=== PATIENT | female | born 1995 | race Two or more races ===

== ENCOUNTER 2024-12-22 14:29 | Inpatient (IN) | payer SELFPAY ==
[~2024-12-22] VITALS: Ht 175.3 cm; Wt 159.0 kg
--- NOTE | 2024-12-22 15:23 | ED.PDOC ---
Epistaxis- HPI HPI Comments 29 y/o F, with no prior medical history presents to the ED for the for CC of nose bleed. 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 Patient denies trauma, fall, injury, or recent use of blood thinners. No other symptoms or modifying behavior present at this time. Chief Complaint: Nose Bleed Time Seen by MD: 15:25 Primary Care Provider: NONE Reviewed Notes: Nurses Notes, Medications, Allergies Allergies: Coded Allergies: NO KNOWN ALLERGIES (Unverified , 12/22/24) Information Source: Patient Mode of Arrival: Ambulatory Severity: Bleeding Uncontrolled Timing: Minutes Duration: Since onset Prehospital treatment: None Location: Right naris Mechanism: Spontaneous onset Circumstances: Unknown Use of: None History of: None Last Tetanus: Unknown Nose: Normal Bleeding Status: Active bleeding Bleeding Amount: Moderate Source: Right Associated signs and symptoms: None Past Medical History PAST MEDICAL HISTORY: Denies Surgical History: Denies all surgeries 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 Hx Family History Family History: Unknown Social History Smoker: Non-Smoker Alcohol: Denies ETOH Use Drugs: Denies Drug Use Lives In: Home Constitutional: denies: chills, diaphoresis, fatigue, fever, malaise, sweats, weakness, others EENTM: reports: nose bleeding; denies: blurred vision, double vision, ear bleeding, ear discharge, ear drainage, ear pain, ear ringing, eye pain, eye redness, hearing loss, mouth pain, mouth swelling, nasal discharge, nose congestion, nose pain, photophobia, tearing, throat pain, throat swelling, voice changes, others Respiratory: denies: cough, hemoptysis, orthopnea, SOB at rest, shortness of breath, SOB with excertion, stridor, wheezing, others Cardiovascular: denies: chest pain, dizzy spells, diaphoresis, Dyspnea on exertion, edema, irregular heart beat, left arm pain, lightheadedness, palpitations, PND, syncope, others Gastrointestinal: denies: abdomen distended, abdominal pain, blood streaked bowels, constipated, diarrhea, dysphagia, difficulty swallowing, hematemesis, melena, nausea, poor appetite, poor fluid intake, rectal bleeding, rectal pain, vomiting, others Genitourinary: denies: abnormal vagina bleeding, burning, dyspareunia, dysuria, flank pain, frequency, hematuria, incontinence, pain, , vagina discharge, urgency, others Neurological: denies: dizziness, fainting, headache, left sided numbness, left sided weakness, numbness, paresthesia, pre-existing deficit, right sided numbness, right sided weakness, seizure, speech problems, tingling, tremors, weakness, others Musculoskeletal: denies: back pain, gout, joint pain, joint swelling, muscle pain, muscle stiffness, neck pain, others Integumetry: denies: bruises, change in color, change in hair/nails, dryness, laceration, lesions, lumps, rash, wounds, others Allergic/Immunocompromised: denies: Difficulty Healing, Frequent Infections, Hives, Itching, others Hematologic/Lymphatic: denies: anemia, blood clots, easy bleeding, easy bruising, swollen glands, others Endocrine: denies: excessive hunger, excessive sweating, excessive thirst, excessive urination, flushing, intolerance to cold, intolerance to heat, unexplained weight gain, unexplained weight loss, others Psychiatric: denies: anxiety, bipolar disorder, depression, hopeless, panic disorder, schizophrenia, sleepless, suicidal, others All Other Systems: Reviewed and Negative Physical Exam General Appearance: No Apparent Distress, Normal HEENT: Normal ENT Inspection, Pharynx Normal, Other (UNCONTROLLED EPISTAXIS TO THE RIGHT NARIS) Neck: Full Range of Motion, Non-Tender, Normal, Normal Inspection Respiratory: Chest Non-Tender, Lungs Clear, No Accessory Muscle Use, No Respiratory Distress, Normal Breath Sounds Cardiovascular: No Edema, No Murmur, No Gallop, Normal Peripheral Pulses, Regular Rate/Rhythm Breast Exam: Deferred Gastrointestinal: No Organomegaly, Non Tender, No Pulsatile Mass, Normal Bowel Sounds, Soft Genitalia: Deferred Pelvic: Deferred Rectal: Deferred Extremities: No calf tenderness, Normal capillary refill, Normal inspection, Normal range of motion, Non-tender, No pedal edema Musculoskeletal : Apperance: Normal Neurologic: Alert, marketing campaign analyst II-XII nml as Tested, No Motor Deficits, Normal Affect, Normal Mood, No Sensory Deficits Cerebellar Function: Normal Reflexes: Normal Skin: Dry, Normal Color, Warm Lymphatic: No Adenopathy Was a procedure done? Was a procedure done?: Yes Sedation Sedation?: No Informed consent obtained: Yes Nasal Cautery and Pack Indicaton: Anterior epitaxis Location of packing: Right Packing: Other (TXA soaked gauze) Informed consent obtained: Yes Risks/benefits/alt described: Yes Differential Diagnosis (NSB) Differential Diagnosis: Anterior Nasal Bleed, Posterior Nasal Bleed, Hypertension, Coagulopathy X-Ray, Labs, Meds, VS Vital Signs Date Time Temp Pulse Resp B/P (MAP) Pulse Ox O2 Delivery O2 Flow Rate FiO2 12/22/24 17:02 236/116 12/22/24 14:45 97.6 122 16 177/109 (131) 96 97.6 Lab Test 12/22/24 16:04 Range/Units White Blood Count 10.8 4.4-10.8 10^3/uL Red Blood Count 4.27 4.0-5.20 10^6/uL Hemoglobin 11.5 L 12.2-16.2 g/dL Hematocrit 35.0 L 36.0-46.0 % Mean Corpuscular Volume 81.9 80.0-100.0 fL Mean Corpuscular Hemoglobin 26.9 L 28.0-32.0 pg Mean Corpuscular Hemoglobin Concent 32.9 32.0-36.0 g/dL Red Cell Distribution Width 15.6 H 11.8-14.3 % Platelet Count 290 140-450 10^3/uL Mean Platelet Volume 7.5 6.9-10.8 fL Neutrophils (%) (Auto) 77.2 37.0-80.0 % Lymphocytes (%) (Auto) 14.7 10.0-50.0 % Monocytes (%) (Auto) 6.1 0.0-12.0 % Eosinophils (%) (Auto) 1.5 0.0-7.0 % Basophils (%) (Auto) 0.5 0.0-2.0 % Neutrophils # (Auto) 8.4 1.6-8.6 10 ^3/uL Lymphocytes # (Auto) 1.6 0.4-5.4 10 ^3/uL Monocytes # (Auto) 0.7 0-1.3 10 ^3/uL Eosinophils # (Auto) 0.2 0-0.8 10 ^3/uL Basophils # (Auto) 0 0-0.2 10 ^3/uL Nucleated Red Blood Cells 0.0 % Sodium Level 140 136-145 mmol/L Potassium Level 3.7 3.5-5.1 mmol/L Chloride Level 105 98-107 mmol/L Carbon Dioxide Level 25 20-31 mmol/L Anion Gap 10 5-15 Blood Urea Nitrogen 12 9-23 mg/dL Creatinine 0.89 0.550-1.02 mg/dL Glomerular Filtration Rate Calc 90 >90 mL/min BUN/Creatinine Ratio 13.5 10.0-20.0 Serum Glucose 115 H 74-106 mg/dL Calcium Level 9.2 8.7-10.4 mg/dL Current Medications Medications (Trade) Dose Ordered Sig/Stalin Route Start Time Stop Time Status Last Admin Oxymetazoline HCl (Afrin) 1 spr ONCE ONCE EACHNOSTRI 12/22/24 15:45 12/22/24 15:46 DC 12/22/24 15:42 Hydralazine HCl (Apresoline Injection) 5 mg ONCE ONCE IV 12/22/24 16:45 12/22/24 16:46 DC 12/22/24 17:02 29-year-old female presents here with evidence of epistaxis. On my evaluation she has significant epistaxis. Patient given Afrin bilaterally with continued bleeding. Blood pressure was noted to be significantly in the 236 systolic over 111. Patient was given hydralazine IV. Suspect high blood pressure is likely the cause of her significant epistaxis. Pressure was held on the nose by myself and the patient. Although it did improve, she continued to have bleeding. At this time I was unable to visualize the exact area therefore unable to perform silver nitrate cauterization. I have placed a TXA soaked gauze into her right nare. After removal, bleeding has stopped. At this time however blood pressure continues to remain high. She states she has a history of blood pressure, previously took some medications but does not know the name. She does not know what her blood pressure normally runs. At this time she continues to remain high. Hospitalist team has been contacted for admission. Time of 1ST Reevaluation: 15:55 Reevaluation 1ST: Unchanged Time of 2ND Reevaluation: 17:36 Reevaluation 2ND: Improved Patient Education/Counseling: Diagnosis, Treatment Family Education/Counseling: No Family Present Departure 1 Departure Time of Disposition: 16:48 Impression: Primary Impression: Epistaxis Additional Impression: Hypertensive urgency Disposition: ADMITTED INPATIENT Condition: Fair Critical Care Note Critical Care Time?: Yes (35 min-critical care time only) Critical care comment: Time spent performing multiple re-evaluations of the patient. Speaking to nursing staff. Speaking to family. managing her BP. Stability Stability form required: No Heart Score Heart Score: Heart Score Response (Comments) Value History N/A 0 EKG N/A 0 Age N/A 0 Risk Factors N/A 0 Troponin N/A 0 Total 0 I personally scribed for BLAYNE WANG MD ([email or web address]) on 12/22/24 at 15:23. Electronically submitted by Martina Hinton ([facility]). I personally scribed for BLAYNE WANG MD ([email or web address]) on 12/22/24 at 15:48. Electronically submitted by Martina Hinton ([facility]). I personally scribed for BLAYNE WANG MD ([email or web address]) on 12/22/24 at 17:25. Electronically submitted by Martina Hinton ([facility]). BLAYNE WANG MD Dec 22, 2024 15:23
[2024-12-22] MEDS: OXYMETAZOLINE HCL 0.05 % NASAL SPRAY 15ML EACHNOSTRI ONE (15:42)
[2024-12-22 16:15] LABS: Hemoglobin 11.5 g/dL (12.2-16.2); Mean Corpuscular Hemoglobin 26.9 pg (28.0-32.0); Nucleated Red Blood Cells % 0.0 %
[2024-12-22] MEDS: TRANEXAMIC ACID 1,000 MG in SODIUM CHL 0.9% 100 ML IV ONE (16:15)
[2024-12-22 16:16] LABS: Hematocrit 35.0 % (36.0-46.0); Mean Corpuscular Volume 81.9 fL (80.0-100.0)
[2024-12-22 16:19] LABS: Chloride 105 mmol/L (98-107); Potassium 3.7 mmol/L (3.5-5.1); Sodium 140 mmol/L (136-145)
[2024-12-22 16:20] LABS: Anion Gap 10 (5-15); Calcium 9.2 mg/dL (8.7-10.4); Carbon Dioxide 25 mmol/L (20-31)
[2024-12-22 16:25] LABS: BUN/Creatinine Ratio 13.5 (10.0-20.0); Blood Urea Nitrogen 12 mg/dL (9-23)
[2024-12-22 16:27] LABS: Glucose 115 mg/dL (74-106)
[2024-12-22 16:45] VITALS: PULSE 97; RESP 19; O2SAT 95
[2024-12-22] MEDS: hydrALAZINE HCL 20 MG/ML VL IV ONE ×2 (17:02→20:45)
[2024-12-22 19:50] VITALS: PULSE 93; RESP 17; O2SAT 96
[2024-12-22] MEDS ORDERED: ONDANSETRON HCL 4 MG/2 ML VIAL IV PRN (20:00)
[2024-12-22] MEDS ORDERED: ACETAMINOPHEN 325 MG TAB PO PRN (20:00)
[2024-12-22 20:17] LABS: INR 0.99 (0.9-1.15); Partial Thromboplastin Time 27.6 SEC (24.5-34.5); Prothrombin Time 10.5 sec (9.3-11.8)
[2024-12-22] MEDS: LISINOPRIL 5 MG TAB PO ONE (20:25)
[2024-12-22] MEDS: LABETALOL HCL 20 MG/4 ML VL IV ONE (21:28)
[2024-12-22] MEDS: OXYMETAZOLINE HCL 0.05 % NASAL SPRAY 15ML EACHNOSTRI SCH (22:10)
[2024-12-23] VITALS (10 sets, daily range): BP systolic 131–177; BP diastolic 83–116; PULSE 70–96; RESP 17–18; TEMP 96.9–97.9; O2SAT 94–99
[2024-12-23] MEDS: METOPROLOL TARTRATE 25 MG TAB PO ONE
--- NOTE | 2024-12-23 04:46 | DVHHP2 ---
History of Present Illness Reason for Visit: Nosebleed History of Present Illness 29-year-old female presents for evaluation of nosebleed. Patient reports having a nosebleed starting today. On arrival to the emergency department her blood pressure was noted to be in the 180s. Patient does not use blood thinners. She states not taking any blood pressure medication for the past two years. Denies headache or blurred vision. No chest pain. No other acute complaints. Past Medical History Denies Past Surgical History Denies Family History Noncontributory Smoke: No ALCOHOL: none Drugs: None Lives: with Family Review of Systems Review of Systems Review of systems are currently negative otherwise addressed in HPI. Allergies: Coded Allergies: NO KNOWN ALLERGIES (Unverified , 12/22/24) Medications Current Medications Medications Dose Ordered Sig/Stalin Route Start Time Stop Time Status Last Admin Dose Admin Lisinopril 10 mg DAILY PO 12/23/24 10:00 Oxymetazoline HCl 2 spr BID EACHNOSTRI 12/22/24 22:00 12/22/24 22:10 2 SPR Ondansetron HCl 4 mg Q4HP PRN IV 12/22/24 20:00 Acetaminophen 650 mg Q6HP PRN PO 12/22/24 20:00 Clonidine HCl 0.1 mg Q6HP PRN PO 12/23/24 04:00 Exam Vital Signs Vital Signs Date Time Temp Pulse Resp B/P (MAP) Pulse Ox O2 Delivery O2 Flow Rate FiO2 12/23/24 03:34 80 22 156/95 (115) 95 12/23/24 01:00 98.0 98.0 12/22/24 19:50 Room Air* 0 21 Exam Gen: 29-year-old female in no apparent distress, morbidly obese Skin: Warm, dry, normal color and texture, no rash. HEENT: Normocephalic atraumatic, mucous membranes moist and pink. Neck: Cervical and supraclavicular nodes normal without enlargement, trachea is midline, thyroid gland is normal without masses. Pulmonary: Clear to auscultation and percussion bilaterally. Cardiac: Regular rate and rhythm. No murmur Abdomen: Soft, nontender, nondistended, bowel sounds present all 4 quadrants, no guarding, no rigidity, no organomegaly. Extremities: No cyanosis, clubbing, no edema Neuro: Cranial nerves II through XII grossly intact, normal affect and speech, no focal motor deficits. Labs/Xrays Labs Test 12/22/24 16:04 Range/Units White Blood Count 10.8 4.4-10.8 10^3/uL Red Blood Count 4.27 4.0-5.20 10^6/uL Hemoglobin 11.5 L 12.2-16.2 g/dL Hematocrit 35.0 L 36.0-46.0 % Mean Corpuscular Volume 81.9 80.0-100.0 fL Mean Corpuscular Hemoglobin 26.9 L 28.0-32.0 pg Mean Corpuscular Hemoglobin Concent 32.9 32.0-36.0 g/dL Red Cell Distribution Width 15.6 H 11.8-14.3 % Platelet Count 290 140-450 10^3/uL Mean Platelet Volume 7.5 6.9-10.8 fL Neutrophils (%) (Auto) 77.2 37.0-80.0 % Lymphocytes (%) (Auto) 14.7 10.0-50.0 % Monocytes (%) (Auto) 6.1 0.0-12.0 % Eosinophils (%) (Auto) 1.5 0.0-7.0 % Basophils (%) (Auto) 0.5 0.0-2.0 % Neutrophils # (Auto) 8.4 1.6-8.6 10 ^3/uL Lymphocytes # (Auto) 1.6 0.4-5.4 10 ^3/uL Monocytes # (Auto) 0.7 0-1.3 10 ^3/uL Eosinophils # (Auto) 0.2 0-0.8 10 ^3/uL Basophils # (Auto) 0 0-0.2 10 ^3/uL Nucleated Red Blood Cells 0.0 % Prothrombin Time 10.5 9.3-11.8 sec Prothrombin Time INR 0.99 0.9-1.15 Activated Partial Thromboplast Time 27.6 24.5-34.5 SEC Sodium Level 140 136-145 mmol/L Potassium Level 3.7 3.5-5.1 mmol/L Chloride Level 105 98-107 mmol/L Carbon Dioxide Level 25 20-31 mmol/L Anion Gap 10 5-15 Blood Urea Nitrogen 12 9-23 mg/dL Creatinine 0.89 0.550-1.02 mg/dL Glomerular Filtration Rate Calc 90 >90 mL/min BUN/Creatinine Ratio 13.5 10.0-20.0 Serum Glucose 115 H 74-106 mg/dL Calcium Level 9.2 8.7-10.4 mg/dL Thyroid Stimulating Hormone (TSH) 1.62 0.55-4.78 uIU/mL SEPSIS Sepsis Screen Date sepsis recognized/suspect: Dec 22, 2024 Time Sepsis recognized/suspect: 1951 Recent Procedure: No On Antibiotic Therapy: No Respiratory Rate >20: No Heart Rate >90: Yes Temp<36 C (96.8 F) or >38.3 C: No SBP <90 or MAP <65 mmHG: No New Acute Mental Status Change: No Is the patient on CPAP, BIPAP,: No Physician Orders Clonidine Hcl Tablet (Catapres Tablet) (12/23/24 04:00) Vital Signs Date Time Temp Pulse Resp B/P (MAP) Pulse Ox O2 Delivery O2 Flow Rate FiO2 12/23/24 03:34 80 22 156/95 (115) 95 12/23/24 01:00 98.0 78 12 155/104 (121) 95 98.0 12/23/24 01:00 75 149/103 12/23/24 00:00 85 177/112 12/22/24 23:05 88 11 153/90 (111) 97 12/22/24 22:42 98.9 87 25 166/88 (114) 96 98.9 12/22/24 22:37 87 183/103 12/22/24 21:28 96 198/117 12/22/24 21:08 90 20 191/123 (145) 97 12/22/24 20:45 194/116 Medications Medications Dose Ordered Sig/Stalin Route Start Time Stop Time Status Last Admin Dose Admin Hydralazine HCl 5 mg ONCE ONCE IV 12/22/24 16:45 12/22/24 16:46 DC 12/22/24 17:02 5 MG Hydralazine HCl 10 mg ONCE ONCE IV 12/22/24 20:45 12/22/24 20:46 DC 12/22/24 20:45 10 MG Labetalol HCl 10 mg ONCE ONCE IV 12/22/24 21:30 12/22/24 21:31 DC 12/22/24 21:28 10 MG Lisinopril 5 mg ONCE ONCE PO 12/22/24 20:00 12/22/24 20:02 DC 12/22/24 20:25 5 MG Metoprolol Tartrate 25 mg ONCE ONCE PO 12/22/24 23:45 12/22/24 23:51 DC 12/23/24 00:00 25 MG Oxymetazoline HCl 2 spr BID EACHNOSTRI 12/22/24 22:00 12/22/24 22:10 2 SPR Assessment/Plan Assessment/Plan Assessment Hypertensive crisis Epistaxis Morbid obesity Plan Admit the patient to [facility] to the hospitalist P.r.n. antihypertensives Resume home medications Continue treatment per orders. Plan discussed with: Patient My Orders Orders - PAULA DAY Procedure Category Date Status Time Lisinopril Tablet PHA 12/23/24 In Process (Zestril Tablet) 10:00 Oxymetazoline Hcl PHA 12/22/24 In Process (Afrin) 22:00 Admit ADMIT 12/22/24 Transmitted 19:50 Ondansetron Hcl PHA 12/22/24 In Process (Zofran) 20:00 Complete Blood Count LAB 12/23/24 Logged 04:00 Condition: Stable JM 12/22/24 In Process 19:50 Acetaminophen Tablet PHA 12/22/24 In Process (Tylenol Tablet) 20:00 Bedrest With Bathroom JM 12/22/24 In Process Privileg 19:50 Clonidine Hcl Tablet PHA 12/23/24 In Process (Catapres Tablet) 04:00 Date of Service: Dec 22, 2024 Billing Provider: PAULA DAY Common Visit Codes: [id number] INP/OBS CARE (HIGH) PAULA DAY Dec 23, 2024 04:46
[2024-12-23] MEDS: LISINOPRIL 5 MG TAB PO SCH (09:09)
[2024-12-23 10:12] LABS: Hematocrit 32.6 % (36.0-46.0); Hemoglobin 11.0 g/dL (12.2-16.2); Mean Corpuscular Hemoglobin 27.2 pg (28.0-32.0); Mean Corpuscular Volume 80.6 fL (80.0-100.0); Nucleated Red Blood Cells % 0.1 %
--- NOTE | 2024-12-23 11:31 | DVHDS2 ---
Discharge Summary Date of Admission Dec 22, 2024 at 19:50 Date of Discharge: Dec 23, 2024 Labs/Diagnostic Data: Laboratory Results Test 12/23/24 09:51 12/22/24 16:04 White Blood Count 10.4 10^3/uL (4.4-10.8) Red Blood Count 4.05 10^6/uL (4.0-5.20) Hemoglobin 11.0 g/dL (12.2-16.2) Hematocrit 32.6 % (36.0-46.0) Mean Corpuscular Volume 80.6 fL (80.0-100.0) Mean Corpuscular Hemoglobin 27.2 pg (28.0-32.0) Mean Corpuscular Hemoglobin Concent 33.7 g/dL (32.0-36.0) Red Cell Distribution Width 15.3 % (11.8-14.3) Platelet Count 295 10^3/uL (140-450) Mean Platelet Volume 7.5 fL (6.9-10.8) Neutrophils (%) (Auto) 76.2 % (37.0-80.0) Lymphocytes (%) (Auto) 15.0 % (10.0-50.0) Monocytes (%) (Auto) 6.6 % (0.0-12.0) Eosinophils (%) (Auto) 1.5 % (0.0-7.0) Basophils (%) (Auto) 0.7 % (0.0-2.0) Neutrophils # (Auto) 7.9 10 ^3/uL (1.6-8.6) Lymphocytes # (Auto) 1.6 10 ^3/uL (0.4-5.4) Monocytes # (Auto) 0.7 10 ^3/uL (0-1.3) Eosinophils # (Auto) 0.2 10 ^3/uL (0-0.8) Basophils # (Auto) 0.1 10 ^3/uL (0-0.2) Nucleated Red Blood Cells 0.1 % Prothrombin Time 10.5 sec (9.3-11.8) Prothrombin Time INR 0.99 (0.9-1.15) Activated Partial Thromboplast Time 27.6 SEC (24.5-34.5) Sodium Level 140 mmol/L (136-145) Potassium Level 3.7 mmol/L (3.5-5.1) Chloride Level 105 mmol/L (98-107) Carbon Dioxide Level 25 mmol/L (20-31) Anion Gap 10 (5-15) Blood Urea Nitrogen 12 mg/dL (9-23) Creatinine 0.89 mg/dL (0.550-1.02) Glomerular Filtration Rate Calc 90 mL/min (>90) BUN/Creatinine Ratio 13.5 (10.0-20.0) Serum Glucose 115 mg/dL (74-106) Calcium Level 9.2 mg/dL (8.7-10.4) Thyroid Stimulating Hormone (TSH) 1.62 uIU/mL (0.55-4.78) Other Laboratory Tests 12/23/24 09:51 12/22/24 16:04 Brief Hx & Hospital Course: SEE DICTATED NOTE Condition at Discharge: Good Final Diagnosis/Problems List HTN Discharge Disposition: Home Discharge Instruct/Medications Diet: Cardiac 2g Na,low cholest Activity: No Restrictions, As Tolerated Follow Up/Referral: FU WIHT PCP IN 1 WK Medications: SCRIPT TO PHARMACY Discharge Statement: "Patient was advised to return to the ER or call 911 if any headaches, dizziness, shortness of breath, chest pain, abdominal pain, bleeding, fevers, or worsening of medical condition. Patient was counseled about treatment plan, medications, possible side effects, patientverbalized understanding. All questions were answered to the best of my ability. This discharge took greater then 30 minutes in planning, reviewing documentation, counseling the patient, and discussing with other team members." ASSESSMENT ASSESSMENT Assessment HTN Date of Service: Dec 23, 2024 Billing Provider: PAULA RAYMUNDO MD Common Visit Codes: [id number] DISCH DAY >30min PAULA RAYMUNDO MD Dec 23, 2024 11:31
[2024-12-23] MEDS ORDERED: LISI10TA34 PO (11:33)
--- NOTE | 2024-12-23 12:04 | DVHDS ---
DATE OF DISCHARGE: 12/23/2024 HISTORY OF PRESENT ILLNESS: The patient is a 29-year-old lady who is admitted with history of sudden onset epistaxis. The patient denies any other complaints. HOSPITAL COURSE: The patient has previous history of hypertension, but subsequently stopped taking her medications. The patient's blood pressure was elevated at 177/109. The patient was started on antihypertensives. Her coagulation profile was normal. The patient has since stopped bleeding. She now wishes to go home. The patient's blood pressure is improved with lisinopril. She will be discharged on lisinopril 10 mg daily. I have asked her to monitor her blood pressure and follow up with her primary in 1 week. FINAL DIAGNOSES: * Hypertensive urgency. * Epistaxis. * Morbid obesity. Time spent in discharge planning and review of plan with the patient and nursing was 36 minutes. MD TIFFANIE Duncan/FLO TID: [id number] RECEIPT: [id number]
[2024-12-23] MEDS: LISINOPRIL 5 MG TAB PO ONE (15:13)
[2024-12-23] MEDS ORDERED: LISI20TA56 PO (15:47)
[2024-12-24 01:00] VITALS: BP 143/99; PULSE 88; RESP 18; TEMP 97.8; O2SAT 94
[2024-12-24 05:00] VITALS: BP 146/88; PULSE 94; RESP 18; TEMP 98.5; O2SAT 100
[2024-12-24 08:00] VITALS: PULSE 97; RESP 19; O2SAT 96
[2024-12-24 08:30] VITALS: BP 153/73; PULSE 97; RESP 19; TEMP 97.5; O2SAT 98
[2024-12-24 10:00] VITALS: BP 132/86
--- NOTE | 2024-12-24 10:58 | DVHPN2 ---
Progress Note Date Seen: Dec 24, 2024 Medical Necessity Reason Pt with a Central, PICC or Fol: No Subjective Patient reports: No new complaints Review of Systems: HEENT:Normal, CVS:Normal, RESPIRATORY:Normal, GI:Normal, :Normal, MSK:Normal, NEURO:Normal Objective vital signs Vital Sign Date Time Temp Pulse Resp B/P (MAP) Pulse Ox O2 Delivery O2 Flow Rate FiO2 12/24/24 08:30 97.5 97 19 153/73 (99) 98 97.5 12/24/24 08:00 Room Air* 0 21 Total Intake and Output 12/23/24 12/23/24 12/24/24 15:00 23:00 07:00 Intake Total 500 ml 600 ml Balance 500 ml 600 ml medications Current Medications Medications Dose Ordered Sig/Stalin Route Start Time Stop Time Status Last Admin Dose Admin Lisinopril 10 mg DAILY PO 12/23/24 10:00 12/24/24 07:57 10 MG Oxymetazoline HCl 2 spr BID EACHNOSTRI 12/22/24 22:00 12/23/24 10:36 2 SPR Ondansetron HCl 4 mg Q4HP PRN IV 12/22/24 20:00 Acetaminophen 650 mg Q6HP PRN PO 12/22/24 20:00 Clonidine HCl 0.1 mg Q6HP PRN PO 12/23/24 04:00 12/23/24 21:02 0.1 MG Nifedipine 60 mg DAILY PO 12/23/24 16:45 12/24/24 07:57 60 MG Examination: GENERAL:Normal, HEENT:Normal, NECK:Normal, LUNGS:Normal, CVS:Normal, ABDOMEN:Normal, MSK:Normal, SKIN:Normal, NEURO:Normal, :Normal laboratory and microbiology Laboratory Tests 12/23/24 09:51 12/22/24 16:04 Test 12/22/24 16:04 Range/Units Serum Glucose 115 H 74-106 mg/dL Problem List/Assessment/Plan Problem List/Assessment/Plan * Hypertensive urgency; add nifedipine * Epistaxis. * Morbid obesity. Plan discussed with: Patient My Orders My Orders Orders - PAULA RAYMUNDO MD Procedure Category Date Status Time Nifedipine Er PHA 12/23/24 In Process (Procardia Xl 16:45 Discharge DISCHARGE 12/24/24 Transmitted 10:56 Date of Service: Dec 24, 2024 Billing Provider: PAULA RAYMUNDO MD Common Visit Codes: [id number] INP/OBS CARE(HIGH) PAULA RAYMUNDO MD Dec 24, 2024 10:58
[2024-12-24] MEDS ORDERED: NIFE1TAB30 PO (10:59)
== END 2024-12-24 12:52 | disposition home or self-care (01) | DRG 305 ==
LOC: ER 14:29 → OVERFLOW 19:50 → EAST 12-23 04:17
PROVIDERS: ADMIT Internal Medicine; ATTEND Internal Medicine
PROC: 093K7ZZ Control Bleeding in Nasal Mucosa and Soft Tissue, Via Natural or Artificial Opening (ICD-10-PCS; principal; 2024-12-22)
DX: I16.0 Hypertensive urgency (principal); Z68.43 Body mass index [BMI] 50.0-59.9, adult; I10 Essential (primary) hypertension; R04.0 Epistaxis; E66.01 Morbid (severe) obesity due to excess calories; Z91.128 Patient's intentional underdosing of medication regimen for other reason
CPT/HCPCS: 30901; 36415; 80048; 84443; 85025; 85610; 85730; 96374; 99291; G0378